=== PATIENT | male | born 1985 | race Caucasian/White ===

== ENCOUNTER 2016-12-24 19:27 | Emergency (ER) | payer OTHER ==
[2016-12-24 21:05] VITALS: BP 129/79
[2016-12-24] MEDS ORDERED: BENADRYL PO ONE (21:57)
[2016-12-24] MEDS ORDERED: PEPCID PO ONE (21:57)
[2016-12-24] MEDS ORDERED: MOTRIN PO ONE (21:57)
--- NOTE | 2016-12-24 22:39 | Emergency Department Report ---
ED Rash HPI - HPI Chief Complaint: Skin Rash Stated Complaint: SKIN IRRITATION Time Seen by Provider: 12/24/16 21:23 Duration: Today Location: Chest, Abdomen, Upper Extremities, Lower Extremities Suspected Cause: Medication, Plant Rash Symptoms: Yes Itching, No Facial Swelling, No Tongue/Oral Swelling, No Breathing Difficulties, No Choking Sensation, No Wheezing/Dyspnea, No Peeling, No Blistering, No Fever, No Lightheaded, No Malaise, No Myalgias Severity: moderate Other History: 31-year-old male past medical history acne presents with complaint of hives to arms legs trunk and back since this afternoon. [place] and subsequently developed rash on his arms trunk and back. Patient denies any contact with specific allergens, no new cosmetics no new soaps, states he is on minocycline for his acne which she started over a week ago. States that uniforms may have come in contact with bushes and shrubs in an open field. Patient denies any shortness of breath no throat discomfort states that rash is itchy is patchy and slightly raised. Has not taken anything for this reaction ED Review of Systems ROS: Stated complaint: SKIN IRRITATION Other details as noted in HPI Constitutional: denies: chills, fever Eyes: denies: eye pain, eye discharge, vision change ENT: denies: ear pain, throat pain Respiratory: denies: cough, shortness of breath, wheezing Cardiovascular: denies: chest pain, palpitations Endocrine: no symptoms reported Gastrointestinal: denies: abdominal pain, nausea, diarrhea Genitourinary: denies: urgency, dysuria Musculoskeletal: denies: back pain, joint swelling, arthralgia Skin: rash, pruritus. denies: lesions Neurological: denies: headache, weakness, paresthesias Psychiatric: denies: anxiety, depression Hematological/Lymphatic: denies: easy bleeding, easy bruising ED Past Medical Hx - Past Medical History Previous Medical History?: No - Surgical History Past Surgical History?: No - Social History Smoking Status: Never Smoker Substance Use Type: None - Medications Home Medications: Home Medications Medication Instructions Recorded Confirmed Last Taken Type Calamine 237 ml TP TID PRN #1 lotion 12/24/16 Unknown Rx Famotidine [Pepcid] 20 mg PO BID PRN #30 tablet 12/24/16 Unknown Rx Hydrocortisone 1% [Hydrocortisone 1 applicatio TP TID PRN #1 tube 12/24/16 Unknown Rx 1% CREAM] Hydroxyzine HCl 25 mg PO Q8H PRN #30 tablet 12/24/16 Unknown Rx Rash Exam - Exam General: Vital signs noted. No distress. Alert and acting appropriately. HEENT: No Periorbital Edema, No Conjuctival Injection, No Chemosis, No Perioral Edema, No Tongue Edema, No Uvular Edema, No Compromised Airway, No Drooling Lungs: Yes Good Air Exchange (Normal Breath Sounds), No Wheezes, No Ronchi, No Stridor, No Cough, No Labored Respirations, No Retractions, No Use of Accessory Muscles, No Other Abnormal Lung Sounds Heart: Yes Regular, No Murmur Skin: Yes Urticarial Rash (patient has diffuse hives and arms legs trunk and back) Other: Positive: Abdomen Normal, Neurologic Normal, Musculoskeletal Normal ED Course Vital Signs 12/24/16 21:01 Temperature 98.0 F Pulse Rate 83 Respiratory 20 Rate Blood Pressure 129/79 O2 Sat by Pulse 100 Oximetry ED Medical Decision Making - Medical Decision Making A/P: Allergic reaction, hives, allergic dermatitis 1-by mouth hydroxyzine and Pepcid when necessary for hives and itching. Patient has had significant resolution of itching and rash with only one dose of these medicines in the ED 2-topical hydrocortisone and calamine lotion to affected areas of skin 3-patient has no signs of angioedema or anaphylaxis, oropharynx completely patent no respiratory distress whatsoever 4-I advised patient to wait until hives resolve before he restarts using minocycline for his acne. I advised patient that if hives resolve and he restarts minocycline and it produces hives again that this is likely the culprit of his allergic reaction 5- patient referred to primary care for follow-up, patient already has bark spudder to follow-up with Critical care attestation.: If time is entered above; I have spent that time in minutes in the direct care of this critically ill patient, excluding procedure time. ED Disposition Clinical Impression: Allergic dermatitis Allergic reaction Qualifiers: Encounter type: initial encounter Qualified Code(s): T78.40XA - Allergy, unspecified, initial encounter Disposition: DISCHARGED TO HOME OR SELFCARE Is pt being admited?: No Does the pt Need Aspirin: No Condition: Stable Instructions: Contact Dermatitis (ED), Urticaria (ED), Allergies (ED) Prescriptions: Calamine 237 ml TP TID PRN #1 lotion PRN Reason: Itching Famotidine [Pepcid] 20 mg PO BID PRN #30 tablet PRN Reason: Allergic Reaction Hydrocortisone 1% [Hydrocortisone 1% CREAM] 1 applicatio TP TID PRN #1 tube PRN Reason: Itching Hydroxyzine HCl 25 mg PO Q8H PRN #30 tablet PRN Reason: Itching Referrals: JULIA KERR MD [Staff Physician] - 3-5 Days Forms: Work/School Release Form(ED) Time of Disposition: 22:42
== END 2016-12-24 22:48 | disposition home or self-care (01) ==
LOC: ED 19:27
DX: L23.9 Allergic contact dermatitis, unspecified cause (principal)
CPT/HCPCS: 99282